=== PATIENT | female | born 1980 | race Caucasian/White ===

== ENCOUNTER 2018-04-07 18:56 | Inpatient (IN) ==
--- NOTE | 2018-04-07 20:07 | ED ---
History of Present Illness Primary Care Physician: Hemalatha Estes MD Chief Complaint: leaking vaginal fluid History of Present Illness: Patient is a 37 yo at 36 weeks who presents with gush of fluid vaginally since 7AM today. Patient states she has continued to trickle fluid throughout the day. Fluid has pink tinge. She states that the baby has 'not been as active' today. care with Dr Key, uncomplicated except for hypothyroidism and AMA. Hypothyroidism was diagnosed during the . Patient takes Levothyroxine. EDC 05/05/2018. GBS was done 04/04/2018, awaiting result. Weeks Gestation:: 36 Para: 0 : 1 Review of Systems All other systems reviewed negative except as stated [facility] - History History Provided By: Patient - Social History I have reviewed the patient's Social History: Yes - Tobacco History Second Hand Smoke Exposure: No Tobacco Use In Past 30 Days: No Smoking Status: Former smoker - Alcohol History How Often Do You Have a Drink Containing Alcohol: Never - Substance Use History Substance History: No History of Abuse - Travel History History of Recent Travel: No Medications and Allergies Allergies Allergy/AdvReac Type Severity Reaction Status Date / Time No Known Allergies Allergy Mild Uncoded 04/07/03 14:38 Home Medications Medication Instructions Recorded Confirmed Type [id number] 1 tab PO DAILY 04/07/18 04/07/18 History Exam Vital signs: Vital Signs 04/07/18 19:30 Temperature 98.6 F Pulse Rate 69 Respiratory Rate 18 Blood Pressure 132/86 Narrative: GENERAL: Well-nourished, well-developed patient. SKIN: Warm and dry. HEAD: Normocephalic and atraumatic. EYES: No scleral icterus. No injection or drainage. ENT: No nasal drainage noted. Mucous membranes pink. Airway patent. NECK: Supple, trachea midline. No JVD. CARDIOVASCULAR: Regular rate and rhythm without murmurs, gallops, or rubs. RESPIRATORY: Breath sounds equal bilaterally. No accessory muscle use. BREASTS: Bilateral exam showed no masses , no retractions, no nipple discharge. ABDOMEN/GI: Abdomen soft, non-tender, bowel sounds present, no rebound, no guarding Gravid to [36] weeks size Fundal Height: [-] GENITOURINARY: External Genitalia: intact and normal in appearance BUS glands: [wnl] Cervix: [vertex] Dilatation: [3cm] Effacement: [80%] Station: [-3] posterior Presentation: [-] Membranes: [ grossly ruptured] Amniosure positive Uterine Contractions: [-] FHT's: Category: [1] Baseline: [120s] Reactive: [-] Variability: [moderate] Decels: [none] EXTREMITIES: No cyanosis or edema. BACK: Nontender without obvious deformity. No CVA tenderness. NEUROLOGICAL: Awake and alert. Motor and sensory grossly within normal limits. Five out of 5 muscle strength in all muscle groups. Normal speech. - Constitutional no acute distress Assessment and Plan - Diagnosis (1) with 39 completed weeks gestation Code(s): Z3A.39 - 39 weeks gestation of ; E03.9 - Hypothyroidism, unspecified Status: Acute (2) Rupture of amniotic sac less than 24 hours prior to the onset of labor Code(s): O42.90 - Premature rupture of membranes, unspecified as to length of time between rupture and onset of labor, unspecified weeks of gestation Status : Acute Qualifiers: PROM onset of labor timing: onset of labor within 24 hours of rupture PROM gestational age: -third trimester Qualified Code(s): O42.013 - premature rupture of membranes, onset of labor within 24 hours of rupture, third trimester (3) Hypothyroidism Code(s): E03.9 - Hypothyroidism, unspecified Status: Acute (4) Hypothyroidism affecting in third trimester Code(s): O99.283 - Endocrine, nutritional and metabolic diseases complicating , third trimester; E03.9 - Hypothyroidism, unspecified Status: Acute (5) AMA (advanced maternal age) primigravida 35+ Code(s): O09.519 - Supervision of elderly primigravida, unspecified trimester Status: Acute (6) Admitted to labor and delivery Code(s): Z78.9 - Other specified health status Status: Acute Plan: ROM at 36 weeks. 3cm dilated. admitted to L&D. Discussed wit Dr Azul, covering attending for Dr Key. Discharge Plan - Discharge Disposition Patient Disposition: 30 Still Patient - Discharge Condition Condition: Good - Discharge Details Diagnosis: 39 weeks gestation of , Rupture of amniotic sac less than 24 hours prior to the onset of labor, Hypothyroidism affecting in third trimester, Admitted to labor and delivery - Physicians Team ED Provider: Tarun August Primary Care Provider: Hemalatha Estes
[2018-04-07] MEDS ORDERED: Sodium Chlor 0.9% Inj 500 ML IV.SIG PRN (20:08)
[2018-04-07] MEDS ORDERED: Sod Chloride 0.9% Inj 1,000 ML IV.CONT PRN (20:08)
[2018-04-07] MEDS ORDERED: Oxytocin 30 Units/500ml Premix 30 UNITS/500 ML BAG IV.SIG ONE (20:08)
[2018-04-07] MEDS ORDERED: Penicillin G Potassium Inj 5,000,000 UNIT in Sodium Chloride 0.9% Inj 100 ML IV.SIG ONE (20:08)
[2018-04-07] MEDS ORDERED: Naloxone Inj 0.4 MG/ML Vial IV.PUSH PRN (20:08)
[2018-04-07] MEDS ORDERED: fentaNYL Citrate Inj 100 MCG/2 ML Ampul IV.PUSH PRN ×2 (20:08)
[2018-04-07] MEDS ORDERED: Citric Acid/Sodium Citrate Liq 30 ML UDC PO SCH (20:15)
[2018-04-07] MEDS ORDERED: Oxytocin 30 Units/500ml Premix 30 UNITS/500 ML BAG IV.SIG PRN (20:52)
--- NOTE | 2018-04-07 20:57 | P.OBLABOR ---
Subjective Interval history: SROM at 0700. patient stayed home until 8 pm with very few contractions. She is 36 weeks by good dating Objective Vital Signs: Vital Signs - 8 hr 04/07/18 19:30 04/07/18 19:41 Temperature 98.6 F Pulse Rate 69 80 Respiratory Rate 18 Blood Pressure 132/86 122/83 Objective: Pelvic Exam: Cervix: [-] Dilatation: 3 Effacement: 100 Station: -1 Presentation: [-] Membranes: SROM clear Uterine Contractions: infrequent FHT's: Category: 1 Baseline: [-] Reactive: [-] Variability: [-] Decels: [-] Weeks Gestation: 36 Active Labor Start Date: 04/07/18 Active Labor Start Time: 07:00 Medical Induction of Labor: No Artificial Rupture of Membrane: No (SROM at home at 7am ) Assessment and Plan - Diagnosis (1) 36 weeks gestation of Code(s): O42.90 - Premature rupture of membranes, unspecified as to length of time between rupture and onset of labor, unspecified weeks of gestation Status : Acute (2) Rupture of amniotic sac less than 24 hours prior to the onset of labor Code(s): O42.90 - Premature rupture of membranes, unspecified as to length of time between rupture and onset of labor, unspecified weeks of gestation Status : Acute (3) Hypothyroidism Code(s): E03.9 - Hypothyroidism, unspecified Status: Acute (2) Rupture of amniotic sac less than 24 hours prior to the onset of labor Qualifiers: PROM onset of labor timing: onset of labor within 24 hours of rupture PROM gestational age: -third trimester Qualified Code(s): O42.013 - premature rupture of membranes, onset of labor within 24 hours of rupture, third trimester
[2018-04-07 22:00] LABS: Baso % (Auto) 0.2 % (0.0-2.0); Eos # (Auto) 0.1 th/mm3 (0.0-0.4); Eos % (Auto) 0.5 % (0.0-4.0); Hematocrit 36.8 % (35.0-46.0); Hemoglobin 12.1 gm/dL (11.6-15.3); Lymph # (Auto) 2.7 th/mm3 (1.0-4.8); Lymph % (Auto) 15.1 % (9.0-44.0); Mean Corpuscular HGB Conc 32.8 % (32.0-36.0); Mean Corpuscular Hemoglobin 26.2 pg (27.0-34.0); Mean Corpuscular Volume 80.1 fL (80.0-100.0); Mean Platelet Volume 10.7 fL (7.0-11.0); Mono # (Auto) 1.4 th/mm3 (0.0-0.9); Mono % (Auto) 7.7 % (0.0-8.0); Neut # (Auto) 13.4 th/mm3 (1.8-7.7); Neut % (Auto) 76.5 % (16.0-70.0); Platelet Count 274 th/mm3 (150-450); Red Cell Distribution Width 14.2 % (11.6-17.2); White Blood Count 17.5 th/mm3 (4.0-11.0)
[2018-04-07 23:01] LABS: Bacteria,Urine Rare /hpf; Bilirubin,Urine Negative (Negative); Clarity,Urine Clear (Clear); Color,Urine Straw (Yellw/Straw); Glucose,Urine (UA) Negative (Negative); Leukocyte Esterase,Urine Negative (Negative); Nitrite,Urine Negative (Negative); Specific Gravity,Urine 1.004 (1.002-1.035); Squamous Epithelial Cell,Urine <1 /hpf (0-5)
[2018-04-07 23:04] LABS: Amphetamine Urine With Conf Neg (Neg); Benzodiazepine Urine With Conf Neg (Neg)
[2018-04-08] MEDS ORDERED: Penicillin G Potassium Inj 2,500,000 UNIT in Sodium Chlor 0.9% Inj 100 ML IV.SIG SCH (00:11)
[2018-04-08] MEDS ORDERED: fentaNYL 2MCG-Bupiv 0.125% Epi 150 ML EPIDURAL ONE (02:38)
[2018-04-08] MEDS ORDERED: Lidocaaine 1.5%/Epinephrine 1:200,000 PF Inj 5 ML Amp ONE (02:46)
[2018-04-08] MEDS ORDERED: Lidocaine PF 1% Inj 5 ML Vial ONE (02:47)
[2018-04-08] MEDS ORDERED: fentaNYL Citrate Inj 100 MCG/2 ML Ampul EPIDURAL ONE (03:33)
[2018-04-08] MEDS ORDERED: fentaNYL 2MCG-Bupiv 0.125% Epi 150 ML EPIDURAL PRN (03:33)
[2018-04-08] MEDS ORDERED: Benzocaine 20% Top Spray 60 ML Can TOPICAL PRN (05:38)
[2018-04-08] MEDS ORDERED: Naloxone Inj 0.4 MG/ML Vial IV.PUSH PRN (05:38)
[2018-04-08] MEDS ORDERED: Witch Hazel 50%/Glyderin 12.5% 40 Pad Jar RECTAL PRN (05:38)
[2018-04-08] MEDS ORDERED: Zolpidem Tartrate 5 MG Tablet PO PRN (05:38)
[2018-04-08] MEDS ORDERED: Bisacodyl 10 MG Supp RECTAL PRN (05:38)
[2018-04-08] MEDS ORDERED: Oxytocin 30 Units/500ml Premix 30 UNITS/500 ML BAG IV.CONT PRN (05:38)
--- NOTE | 2018-04-08 05:40 | P.OBDELI ---
Weeks Gestation: 36 Anesthesia: Epidural Episiotomy: none Vaginal Delivery: Normal, Spontaneous Presentation: Occiput anterior Nuchal Cord: x1 Delayed Cord Clamping (45 sec): Yes Laceration: Vaginal, 2 deg Repair: Chromic running : Female, Single
[2018-04-08] MEDS: Senna/Docusate Sodium 8.6/50 MG Tablet PO SCH (08:50)
[2018-04-08] MEDS ORDERED: Measles/Mumps/Rubella Vaccine Inj 0.5 ML Vial SQ ONE (16:00)
[2018-04-08] MEDS ORDERED: Diphtheria/Tetanus/Pertussis Vaccine Inj 0.5 ML Syringe IM ONE (16:00)
[2018-04-09] MEDS: Senna/Docusate Sodium 8.6/50 MG Tablet PO SCH ×3 (01:06→21:47)
--- NOTE | 2018-04-09 06:59 | P.PNOB ---
Subjective Post day: 1 Objective Vital Signs/I&O: Vital Signs 04/08/18 07:01 04/08/18 08:05 04/08/18 20:05 Temperature 97.9 F 98.3 F Pulse Rate 78 86 83 Respiratory Rate 19 18 Blood Pressure 120/77 119/65 120/82 Intake & Output 04/08/18 04/08/18 04/09/18 06:59 18:59 06:59 Weight 94.347 kg Result Diagrams: 04/07/18 21:50 Objective Remarks: GENERAL: Well-nourished, well-developed patient. CARDIOVASCULAR: Regular rate and rhythm without murmurs, gallops, or rubs. RESPIRATORY: Breath sounds equal bilaterally. No accessory muscle use. ABDOMEN/GI: Abdomen soft, non-tender. Fundus: Firm, non-tender at umbilicus. GENITOURINARY: Light to moderate bleeding. EXTREMITIES: No cyanosis or edema, non-tender, without signs of DVT. Medications and IVs: Active Medications Acetaminophen (Tylenol) 650 mg PO Q4H PRN PRN Reason: PAIN SCALE 1 TO 2 Al Hydroxide/Mg Hydroxide (Milk Of Magnesia Liq) 30 ml PO Q12H PRN PRN Reason: Mild Constipation Benzocaine (Americaine 20% [place]) 1 spray TOPICAL Q4H PRN PRN Reason: For Perineum Discomfort Last Admin: 04/08/18 19:48 Dose: 1 spray Bisacodyl (Dulcolax Supp) 10 mg RECTAL DAILY PRN PRN Reason: SEVERE CONSITIPATION Citric Acid/Sodium Citrate (Sodium Citrate/Citric Acid Liq) 30 ml PO [employer] WYATT Stop: 04/11/18 20:14 Ibuprofen (Motrin) 800 mg PO Q8H PRN PRN Reason: For Cramping Last Admin: 04/09/18 05:17 Dose: 800 mg Lactulose (Lactulose Liq) 30 ml PO DAILY PRN PRN Reason: SEVERE CONSITIPATION Mineral Oil (Muri-Lube Oil) 10 ml TOPICAL PRN PRN PRN Reason: PRN perineal massage Ondansetron HCl (Zofran Odt) 4 mg PO Q6H PRN PRN Reason: NAUSEA OR VOMITING Oxycodone/Acetaminophen (Percocet 5/325 Mg) 2 tab PO Q4H PRN PRN Reason: PAIN SCALE 6 TO 10 Oxycodone/Acetaminophen (Percocet 5/325 Mg) 1 tab PO Q4H PRN PRN Reason: PAIN SCALE 3 TO 5 Senna/Docusate Sodium (Delia-Colace) 1 tab PO BID WYATT Last Admin: 04/09/18 01:06 Dose: Not Given Sennosides (Senokot) 17.2 mg PO Q12H PRN PRN Reason: Moderate Constipation Witch Jane/Glycerin (Tucks Pads) 1 applicatio RECTAL QID PRN PRN Reason: HEMORRHOIDS Last Admin: 04/08/18 19:47 Dose: 1 applicatio Zolpidem Tartrate (Ambien) 5 mg PO HS PRN PRN Reason: SLEEP Assessment and Plan - Diagnosis (1) 36 weeks gestation of Code(s): O42.90 - Premature rupture of membranes, unspecified as to length of time between rupture and onset of labor, unspecified weeks of gestation Status : Acute (2) Rupture of amniotic sac less than 24 hours prior to the onset of labor Code(s): O42.90 - Premature rupture of membranes, unspecified as to length of time between rupture and onset of labor, unspecified weeks of gestation Status : Acute (3) Hypothyroidism Code(s): E03.9 - Hypothyroidism, unspecified Status: Acute - Plan PPD # 1 s/p at 36 wks doing well, routine care (2) Rupture of amniotic sac less than 24 hours prior to the onset of labor Qualifiers: PROM onset of labor timing: onset of labor within 24 hours of rupture PROM gestational age: -third trimester Qualified Code(s): O42.013 - premature rupture of membranes, onset of labor within 24 hours of rupture, third trimester
[2018-04-09] MEDS: Acetaminophen 325 MG Tablet PO PRN ×2 (09:38→21:03)
[2018-04-09 20:40] VITALS: RESP 18
[2018-04-10] MEDS: Acetaminophen 325 MG Tablet PO PRN (04:26)
[2018-04-10 09:39] VITALS: BP 124/73; PULSE 65
[2018-04-10 09:40] VITALS: TEMP 97.3
[2018-04-10] MEDS: Senna/Docusate Sodium 8.6/50 MG Tablet PO SCH (09:53)
== END 2018-04-10 16:41 | disposition home or self-care (01) ==
LOC: HOBED 18:56 → H2E 19:50 → H1EA 04-08 07:52
PROVIDERS: ADMIT Obstetrics & Gynecology; ATTEND Obstetrics & Gynecology